=== PATIENT | female | born 1960 | race Caucasian/White ===

== ENCOUNTER 2020-12-21 15:56 | Observation (INO) ==
[2020-12-21 17:06] LABS: Basophils % 0.5 % (0.0-0.8); Eosinophils # 0.1 10*3/uL (0.0-0.87); Hematocrit 41.7 VOL% (35.7-47.0); Hemoglobin 14.8 GM/DL (12.0-16.0); Immature Granulocytes % 0.4 %; Immature Granulocytes Absolute 0.02 #; Lymphocytes % 36.4 % (21.3-54.2); Mean Corpuscular HGB Conc 35.5 GM/DL (32-36); Mean Corpuscular Volume 85.1 FL (87-102); Mean Platelet Volume 10.2 FL (9.6-12.0); Monocytes % 8.5 % (1.7-12.7); Neutrophils % 52.2 % (38.7-73.9); Platelet Count 212 T/CUMM (130-400); White Blood Count 5.5 T/CUMM (4-12)
[2020-12-21] MEDS ORDERED: LABETALOL 20 MG/4 ML SYRINGE IV STA (17:12)
[2020-12-21 17:31] LABS: PT Patient Result 10.8 SECS (9.8-11.9); Partial Thromboplastin Time 30.5 SECS (23.9-33.8)
[2020-12-21 17:36] LABS: Albumin 4.6 G/DL (3.4-5.0); Bilirubin,Total 0.4 MG/DL (0.2-1.0); Calcium 9.7 MG/DL (8.5-10.1); Osmolality,Calculated 278.2 MOS/KG (273-304); Potassium 3.8 MMOL/L (3.5-5.1); Total Protein 8.1 G/DL (6.4-8.3)
[2020-12-21] MEDS ORDERED: KETOROLAC 30 MG/1 ML VIAL IV STA (18:09)
[2020-12-21] MEDS ORDERED: ONDANSETRON 4 MG/2 ML VIAL IV PRN (18:23)
[2020-12-21] MEDS ORDERED: DEXTROSE 50% 25 GM/50 ML VIAL IV PRN (18:23)
[2020-12-21] MEDS ORDERED: GLUCAGON 1 MG VIAL IM PRN (18:23)
[2020-12-21] MEDS ORDERED: hydrALAZINE 20 MG/1 ML VIAL IV PRN (18:27)
[2020-12-21] MEDS ORDERED: ACETAMINOPHEN 325 MG TABLET PO PRN (22:11)
[2020-12-21] MEDS: SODIUM CHLORIDE 0.9% 1,000 ML IV SCH (22:29)
[2020-12-21] MEDS: ENOXAPARIN 40 MG/0.4 ML SYRINGE SUBCUT SCH (22:30)
[2020-12-21] MEDS: INSULIN LISPRO 100 UNIT/ML SUBCUT SCH (22:46)
[2020-12-22 05:42] LABS: Basophils % 0.7 % (0.0-0.8); Eosinophils # 0.2 10*3/uL (0.0-0.87); Eosinophils % 2.5 % (0.00-10.9); Hematocrit 41.4 VOL% (35.7-47.0); Hemoglobin 14.3 GM/DL (12.0-16.0); Immature Granulocytes % 0.3 %; Immature Granulocytes Absolute 0.02 #; Lymphocytes # 2.9 10*3/uL (1.4-4.0); Lymphocytes % 47.2 % (21.3-54.2); Mean Corpuscular HGB Conc 34.5 GM/DL (32-36); Mean Corpuscular Volume 87.2 FL (87-102); Mean Platelet Volume 10.5 FL (9.6-12.0); Monocytes % 8.3 % (1.7-12.7); Platelet Count 228 T/CUMM (130-400); Red Blood Count 4.75 MC/CUMM (3.8-5.5); Red Cell Distribution Width 13.2 % (9.3-17.3); White Blood Count 6.1 T/CUMM (4-12)
[2020-12-22 06:12] LABS: Calcium 9.4 MG/DL (8.5-10.1); Osmolality,Calculated 277.1 MOS/KG (273-304); Potassium 3.7 MMOL/L (3.5-5.1)
[2020-12-22] MEDS: PANTOPRAZOLE 40 MG TABLET PO SCH (08:35)
[2020-12-22] MEDS: amLODIPine 10 MG TABLET PO SCH (08:35)
[2020-12-22] MEDS: METOPROLOL SUCCINATE XL 100 MG TABLET PO SCH (08:35)
[2020-12-22] MEDS: ASPIRIN EC 81 MG TABLET PO SCH (08:35)
[2020-12-22] MEDS: INSULIN LISPRO 100 UNIT/ML SUBCUT SCH ×4 (09:48→21:30)
[2020-12-22] MEDS: LOSARTAN 50 MG TABLET PO SCH (15:16)
[2020-12-22] MEDS: EZETIMIBE 10 MG TABLET PO SCH (15:16)
[2020-12-22] MEDS: metFORMIN 500 MG TABLET PO SCH (16:25)
[2020-12-22] MEDS: KETOROLAC 15 MG/1 ML VIAL IV PRN (19:48)
[2020-12-22 20:22] LABS: Bilirubin,Urine Negative (Negative); Blood, Urine Negative (Negative); Glucose,Urine (UA) >=500 mg/dL (Negative); Ketones,Urine 5 mg/dL (Negative); Mucus,Urine Occasional /LPF (Occasional); Nitrite,Urine Negative (Negative); Protein,Urine 100 MG/DL; RBC,Urine 1 /HPF (0-4); Urine Appearance CLEAR (Clear); Urine Color Yellow (Yellow); Urine Specific Gravity 1.018 (1.001-1.035); Urine Urobilinogen < 2.0 EU/DL (0.2-1.0); WBC,Urine 2 /HPF (0-6)
[2020-12-22] MEDS: ENOXAPARIN 40 MG/0.4 ML SYRINGE SUBCUT SCH (21:30)
[2020-12-23] MEDS: SODIUM CHLORIDE 0.9% 1,000 ML IV SCH (03:29)
[2020-12-23] MEDS: INSULIN LISPRO 100 UNIT/ML SUBCUT SCH ×4 (08:56→22:04)
[2020-12-23] MEDS: amLODIPine 10 MG TABLET PO SCH (08:58)
[2020-12-23] MEDS: METOPROLOL SUCCINATE XL 100 MG TABLET PO SCH (08:58)
[2020-12-23] MEDS: LOSARTAN 50 MG TABLET PO SCH (08:58)
[2020-12-23] MEDS: ASPIRIN EC 81 MG TABLET PO SCH (11:51)
[2020-12-23] MEDS: metFORMIN 500 MG TABLET PO SCH ×2 (11:51→17:21)
[2020-12-23] MEDS: hydroCHLOROthiazide 25 MG TABLET PO SCH (11:51)
[2020-12-23] MEDS: EZETIMIBE 10 MG TABLET PO SCH (11:52)
[2020-12-23] MEDS: PANTOPRAZOLE 40 MG TABLET PO SCH (11:52)
[2020-12-23] MEDS: KETOROLAC 15 MG/1 ML VIAL IV PRN (12:02)
[2020-12-23] MEDS ORDERED: DEXTROSE 50% 25 GM/50 ML VIAL IV PRN (12:52)
[2020-12-23] MEDS ORDERED: GLUCAGON 1 MG VIAL IM PRN (12:52)
[2020-12-23] MEDS: ENOXAPARIN 40 MG/0.4 ML SYRINGE SUBCUT SCH (22:05)
[2020-12-24] MEDS: SODIUM CHLORIDE 0.9% 1,000 ML IV SCH ×2 (02:46→07:55)
[2020-12-24 05:57] LABS: Basophils % 0.6 % (0.0-0.8); Eosinophils # 0.2 10*3/uL (0.0-0.87); Eosinophils % 4.1 % (0.00-10.9); Hematocrit 42.7 VOL% (35.7-47.0); Hemoglobin 15.2 GM/DL (12.0-16.0); Immature Granulocytes % 0.7 %; Immature Granulocytes Absolute 0.04 #; Lymphocytes # 2.4 10*3/uL (1.4-4.0); Lymphocytes % 45.2 % (21.3-54.2); Mean Corpuscular HGB Conc 35.6 GM/DL (32-36); Mean Corpuscular Volume 85.2 FL (87-102); Mean Platelet Volume 10.3 FL (9.6-12.0); Monocytes % 8.4 % (1.7-12.7); Platelet Count 218 T/CUMM (130-400); Red Blood Count 5.01 MC/CUMM (3.8-5.5); Red Cell Distribution Width 13.2 % (9.3-17.3); White Blood Count 5.4 T/CUMM (4-12)
[2020-12-24 06:16] LABS: Calcium 9.2 MG/DL (8.5-10.1); Osmolality,Calculated 276.1 MOS/KG (273-304); Potassium 3.3 MMOL/L (3.5-5.1)
[2020-12-24 06:19] LABS: Risk Ratio 8.29; VLDL CHOLESTEROL 181.8 MG/DL
[2020-12-24] MEDS: INSULIN LISPRO 100 UNIT/ML SUBCUT SCH ×3 (09:08→16:30)
[2020-12-24] MEDS: ASPIRIN EC 81 MG TABLET PO SCH (09:09)
[2020-12-24] MEDS: LOSARTAN 50 MG TABLET PO SCH (09:09)
[2020-12-24] MEDS: hydroCHLOROthiazide 25 MG TABLET PO SCH (09:09)
[2020-12-24] MEDS: metFORMIN 500 MG TABLET PO SCH (09:09)
[2020-12-24] MEDS: amLODIPine 10 MG TABLET PO SCH (09:10)
[2020-12-24] MEDS: METOPROLOL SUCCINATE XL 100 MG TABLET PO SCH (09:10)
[2020-12-24] MEDS: EZETIMIBE 10 MG TABLET PO SCH (09:10)
[2020-12-24] MEDS: PANTOPRAZOLE 40 MG TABLET PO SCH (09:10)
[2020-12-24] MEDS ORDERED: POTASSIUM CHLORIDE 20 MEQ/15 ML UDCUP PO ONE (12:11)
[2020-12-24] MEDS ORDERED: OMEGA 3 ACID ETHYL ESTERS 1 GM CAPSULE PO SCH (12:30)
[2020-12-24] MEDS ORDERED: FENOFIBRATE 145 MG TABLET PO SCH (12:30)
[2020-12-24 16:06] VITALS: BP 162/76
[2020-12-24] MEDS ORDERED: ATORVASTATIN 40 MG TABLET PO SCH (21:00)
== END 2020-12-24 16:30 | disposition home or self-care (01) ==
LOC: N.ED 15:56 → N.EDINP 15:56 → SUATTDRO 18:23 → N.EDINP 20:35 → N.3E 21:07
PROVIDERS: ADMIT Emergency Medicine; ATTEND Internal Medicine